=== PATIENT | male | born 1940 | race Caucasian/White ===

== ENCOUNTER 2024-08-28 09:54 | Day surgery (SDC) | payer MEDICARE, OTHER, SELFPAY ==
[2024-08-28] VITALS (13 sets, daily range): BP systolic 94–128; BP diastolic 60–81; BMI 24.0
[2024-08-28] MEDS: LOW STRENGTH ASPIRIN 324 MG PO (11:09)
--- NOTE | 2024-08-28 13:10 | ITS.CL.CATH ---
[facility] - Catheterization
Cardiac Catheterization
Procedure Report:
LEFT HEART CATHETERIZATION
Date of Procedure: 08/28/2024
Procedures performed:
1: Coronary angiography
2: Left ventriculography
Primary Care Physician: Dr. Link Loaiza
Primary Public Relations Director: Dr. Juan Carlos Lazcano
INDICATION: The patient is an 84-year-old man with past medical history significant for mitral valve repair in 2018, persistent atrial fibrillation, hypertension, and severe progressive symptomatic aortic stenosis. Echocardiography performed on
August 21 showed preserved LV systolic function, severe left atrial dilation, mild to moderate aortic regurgitation with severe aortic valvular stenosis with at worst a mean gradient of 68 mmHg a aortic valve area by continuity of 0.66 and a
dimensionless index of 0.18. He is experience increasing dyspnea on exertion. He is referred for coronary angiography in preparation for aortic valve intervention.
ACCESS: The patient was prepped and draped in usual sterile fashion. A 6 [place] sheath was placed in the right radial artery using the Seldinger over the wire technique.
HEMODYNAMIC FINDINGS (mmHg):
LV(s/d,EDP): 143/17, 23
Ao(s/d,m): 107/65, 83
Mean gradient on pullback 33 mmHg
ANGIOGRAPHIC FINDINGS:
Single-plane Left Ventriculography in [place] Projection: Not done
Coronary Angiography:
Dominance: Right
Left Main: Normal
Left Anterior Descending: The left anterior descending artery is a medium caliber vessel that gives rise to one major diagonal branch. The LAD itself has only mild luminal irregularities. The major diagonal branch has a smooth 50-60% ostial stenosis.
Ramus Intermedius: The ramus is a medium caliber vessel that bifurcates into 2 major branches. These vessels are widely patent.
Left Circumflex: The left circumflex is a relatively small caliber vessel that gives rise to 2 major obtuse marginal branches. These vessels have very mild luminal irregularities with no evidence of focal obstructive disease. The circumflex ostium
does have a smooth 50% stenosis.
Right Coronary: The right coronary artery is a relatively large caliber dominant vessel that gives rise to a medium caliber posterior descending artery and small posterior left ventricular branch system. There is mild 30-40% ostial disease. The
remainder of the vessels are widely patent.
Fluoroscopy Time (min): 2.8
Radiation Dose (mGy): 285
DAP (Gy.cm2): 24
Closure device: None. A TR band was applied for hemostasis at the right wrist.
Complications: None.
ASSESSMENT:
1: Nonobstructive coronary artery disease. Unchanged coronary anatomy as compared to prior angiography in 2017
2: Severe aortic valvular stenosis.
3: Elevated left ventricular filling pressures.
CONCLUSIONS and RECOMMENDATIONS:
1: Proceed with planned TAVR evaluation.
2: Continue medical therapy. Resume Eliquis in a.m. tomorrow.
Lynn Mcdonnell M.D.
Copy to: Dr. Link Loaiza
--- NOTE | 2024-08-28 14:46 | CONSULT.STRU ---
Addendum entered and electronically signed by ILIANA Alonzo 08/30/24 09:54:
Procedure Type:�Isolated AVR
PERIOPERATIVE OUTCOME ESTIMATE %
Operative Mortality 3.13%
Morbidity & Mortality 10.9%
Stroke 1.7%
Renal Failure 2.17%
Reoperation 5.27%
Prolonged Ventilation 5.29%
Deep Sternal Wound Infection 0.08%
Long Hospital Stay (>14 days) 6.45%
Short Hospital Stay (<6 days)* 23.7%
Original Note:
Consultation
-
Date/Time Consultation Requested: 08/28/2024
Date/Time Consultation Performed: 08/28/2024
Requesting Provider: Dr. Mcdonnell
Performing Provider: ILIANA Alonzo
Reason for Consultation: Aortic stenosis/TAVR evaluation
Patient History
Physicians
Family Physician: Dr. Loaiza
Outpatient Learning Support Teacher: Dr. Lazcano
Primary Learning Support Teacher: Dr. Lazcano
History of Present Illness
Patient is an 84yo male with known aortic stenosis. Over past 3-4 weeks he has noted increasing BLEVINS and has experienced pre-syncopal episode on several occasions with activity. His history is also notable for A-fib (on Eliquis), R-BBB and prior MV
repair in [address] Adan. Prior to a few weeks ago he was very active so this is a significant change for him. He denies chest pain, palpitations, orthopnea or PND. Denies peripheral edema. His echocardiogram on 08/21 was notable for EF: 50%,
Aortic valve PG/M/68, KEYANNA: 0.66, mild to moderate AI. Cardiac cath today with non-obstructive CAD, elevated filling pressures and a MG of 33mmHg on pull back.
Reviewed the pathophysiology of aortic stenosis with the patient,his and his son. Explained the treatment options of SAVR and TAVR. Explained the TAVR evaluation process including follow up BMP, CT TAVR scan, CT surgery consult and Heart Team
discussion. Provided with script for BMP next week, script and appointment for CT TAVR, Consult appointment with Dr. Miller and a copy of the TAVR education booklet with contact information. Allowed for and answered questions.
Past Medical History
Past Medical History: Atrial Fib (Eliquis), CAD (non-obstructive), BLEVINS, HTN, Hypercholesterolemia, JO (not formally diagnosed, no CPAP), Valvular Disease (h/o MR with MV repair 2017, , AI, Mild MR, Moderate TR) and Other (h/o pulmonary nodule,
osteoarthritis left hip)
Past Surgical History
Past Surgical History: Abdominal (hernia repairs (2000, 2016, 1997)), Orthopedic (Bilateral TKR (2003, 2013)) and Other (Cataract surgery, Lasik)
Dental History
Full Dentures
Family History
Mother: at Age
Father: at Age (CAD/VA age 84yo)
Family Medical History: Other (older brother with )
Social History
Alcohol: None
Drug: None
Tobacco: Non-Smoker
Personal:
Living: With Spouse
Employment: Retired ([employer])
Allergies
Allergy/AdvReac Type Severity Reaction Status Date / Time
amoxicillin Allergy Rash Verified 08/28/24 10:56
morphine Allergy hypotension, Verified 08/28/24 10:56
bradycardia
Home Medications
�Medication �Instructions �Recorded �Confirmed �Type
L.acidoph, paracasei,B. lactis 10 1 ea PO DAILY 10/04/17 08/28/24 History
billion cell capsule
coenzyme X53-flirrtx E 100 mg-5 1 ea PO DAILY 10/04/17 08/28/24 History
unit capsule (Co Q-10 (with Vit E))
multivitamin 1 ea PO DAILY 10/04/17 08/28/24 History
omega 6-haq-wdp-fish oil 300 1 ea PO DAILY 10/04/17 08/28/24 History
mg-1,000 mg capsule (Fish Oil)
apixaban 5 mg tablet (Eliquis) 5 mg PO BID 08/28/24 08/28/24 History
ascorbic acid (vitamin C) 1,000 mg 1,000 mg PO DAILY 08/28/24 08/28/24 History
tablet,extended release (Vitamin C
ER)
cholecalciferol (vitamin D3) 25 25 mcg PO DAILY 08/28/24 08/28/24 History
mcg (1,000 unit) tablet (Vitamin
D3)
hydrochlorothiazide 25 mg tablet 25 mg PO DAILY 08/28/24 08/28/24 History
losartan 25 mg tablet 50 mg PO DAILY 08/28/24 08/28/24 History
magnesium 250 mg tablet 250 mg PO DAILY 08/28/24 08/28/24 History
zinc 50 mg capsule 50 mg PO DAILY 08/28/24 08/28/24 History
Physical Exam
Vital Signs
Temp 97.9 F 08/28/24 10:39
Temp route: Oral 08/28/24 10:35
Pulse 87 08/28/24 14:22
Resp Rate 17 08/28/24 14:30
Blood pressure 101/65 08/28/24 14:22
Blood pressure extremity used: Left upper arm 08/28/24 14:30
Position: Sitting 08/28/24 14:30
MAP (cuff-Muriel Monitor) 77 08/28/24 14:22
SaO2 98 08/28/24 14:30
Oxygen Mode of Delivery Room air 08/28/24 14:30
Can the patient verbally communicate their pain? Yes 08/28/24 14:30
Actual Weight 71.6 kg 08/28/24 10:56
Body Mass Index (BMI) 24.0 08/28/24 10:56
Labs
08/22/2024:
H/H: 13.5/41.5
WBC: 3.9
Platelets: [id number]
BUN/Creat: 06/11.05
GFR: 70
Diagnostic Studies
Cardiac Catheterization 08/28/2024:
HEMODYNAMIC FINDINGS (mmHg):
LV(s/d,EDP): 143/17, 23
Ao(s/d,m): 107/65, 83
Mean gradient on pullback 33 mmHg
ANGIOGRAPHIC FINDINGS:
Single-plane Left Ventriculography in [place] Projection: Not done
Coronary Angiography:
Dominance: Right
Left Main: Normal
Left Anterior Descending: The left anterior descending artery is a medium caliber vessel that gives rise to one major diagonal branch. The LAD itself has only mild luminal irregularities. The major diagonal branch has a smooth 50-60% ostial stenosis.
Ramus Intermedius: The ramus is a medium caliber vessel that bifurcates into 2 major branches. These vessels are widely patent.
Left Circumflex: The left circumflex is a relatively small caliber vessel that gives rise to 2 major obtuse marginal branches. These vessels have very mild luminal irregularities with no evidence of focal obstructive disease. The circumflex ostium
does have a smooth 50% stenosis.
Right Coronary: The right coronary artery is a relatively large caliber dominant vessel that gives rise to a medium caliber posterior descending artery and small posterior left ventricular branch system. There is mild 30-40% ostial disease. The
remainder of the vessels are widely patent.
Fluoroscopy Time (min): 2.8
Radiation Dose (mGy): 285
DAP (Gy.cm2): 24
Closure device: None. A TR band was applied for hemostasis at the right wrist.
Complications: None.
ASSESSMENT:
1: Nonobstructive coronary artery disease. Unchanged coronary anatomy as compared to prior angiography in 2017
2: Severe aortic valvular stenosis.
3: Elevated left ventricular filling pressures.
CONCLUSIONS and RECOMMENDATIONS:
1: Proceed with planned TAVR evaluation.
2: Continue medical therapy. Resume Eliquis in a.m. tomorrow.
Echocardiogram 08/21/2024:
1. Moderate concentric LVH, low normal LVEF of 50%
2. Abnl LV diastolic dysfunction
3. Severely dilated left atrium
4. Mildly dilated right atrium
5. Tricuspid AV. Severe , mild to moderate AI. PG/M/68, KEYANNA: 0.66, Peak velocity: 5.66m/s
6. Mild MR. Mean gradient 5mmHg
7. Moderate TR
Exam
General: Well Developed, Well Nourished, No Apparent Distress and Comfortable
HEENT: Moist Mucous Membranes, PERRLA and EOMI
Neck: Trachea Midline
Respiratory: Clear; Negative Wheezes, Crackles or Rhonchi
Cardiac: S1/S2, Irregular Rhythm and Murmur (Grade III/)
GI: Soft, Non Tender, Non Distended and Normal Bowel Sounds; Negative Tender or Distended
Rectal: Deferred by Provider
Skin: Warm and Dry
Neuro: AO x 3 and No Motor Deficits
Extremities: Pulses (palpable DP and PT pulses); Negative Lower Level Edema
Psych: Calm
Assessment / Plan
-
Severe Aortic stenosis:
����������� Continue evaluation for TAVR as outpatient
����������� BMP 09/03/2024 at [facility]
����������� CT TAVR scan 09/06/2024 at 0945
����������� CT surgery consult with Dr. Miller 09/11/2024
����������� Heart team discussion at [facility]
Data Reviewed
-
EKG: Report Reviewed by me (R-BBB), Discussed with Patient and Discussed with Family
Implementation Manager: Report Reviewed by me, Discussed with Physician, Discussed with Patient and Discussed with Family
Echo: Report Reviewed by me, Discussed with Patient and Discussed with Family
Labs: Labs Reviewed by me and Discussed with Patient
Old Records: Reviewed (Consult from Dr. Lazcano)
Total Time Spent with Patient (in minutes): 30
== END 2024-08-28 15:52 | disposition home or self-care (01) ==
LOC: CATH 09:54
PROVIDERS: ATTENDING PHYSICIAN Internal Medicine Interventional Cardiology; PRIMARYCARE PHYSICIAN Family Medicine; REFERRING PHYSICIAN Internal Medicine Cardiovascular Disease
DX: I25.10 Atherosclerotic heart disease of native coronary artery without angina pectoris (principal); I35.2 Nonrheumatic aortic (valve) stenosis with insufficiency; I48.19 Other persistent atrial fibrillation; I10 Essential (primary) hypertension; R06.09 Other forms of dyspnea; E78.00 Pure hypercholesterolemia, unspecified; I08.3 Combined rheumatic disorders of mitral, aortic and tricuspid valves; Z82.49 Family history of ischemic heart disease and other diseases of the circulatory system; Z79.01 Long term (current) use of anticoagulants; Z79.899 Other long term (current) drug therapy
CPT/HCPCS: 93458; C1894; Q9967

== ENCOUNTER → 2024-09-06 09:39 | Outpatient (REF) | payer MEDICARE, OTHER, SELFPAY | LOC: RAD 09:39 | PROVIDERS: ATTENDING PHYSICIAN Nurse Practitioner Adult Health | DX: I35.0 Nonrheumatic aortic (valve) stenosis (principal) | CPT/HCPCS: 74174; 75572; Q9967 ==

== ENCOUNTER 2024-10-01 17:37 | Inpatient (IN) | payer MEDICARE, OTHER, SELFPAY ==
[2024-10-01 17:42] VITALS: BP 100/78
--- NOTE | 2024-10-01 18:46 | HPS.HSE ---
Family Physician
-
Family Physician: Link Loaiza
Chief Complaint
-
sob
History of Present Illness
84-year-old with past medical history for complete heart cardiac surgery for severe mitral valve regurgitation, sternotomy and mitral valve repair presented with short of breath for past few months. Short of breath worse with exertion. As per
cardiology and they meet criteria for severe aortic valve stenosis. Patient getting admitted to [facility] for possible TAVR on and cath tomorrow morning.
patient was admitted to [facility] due to CHF in setting of aortic stenosis. his symptoms did not improve with lasix. . he was placed on Bumex with some relief in his symptoms. He was noted to have LFT congestion and KHUSHBOO. he was also noted in
constipation. we was able to move his bowels today with laxative. patient was also noted to have rectal bleed likely from hemorrhoids related to constipation. he only noticed blood with wiping. patient was evaluated by GI at [facility] with recommendation
of continuing Miralax and Colace.
today patient denied fever, chills, chest pain. denied abdominal pain,n,v,d. denied dysuria or hematuria.
admitting for further management.
Medical History
Past Medical History
Past Medical History: Reports Other
Additional Past Medical History:
Mitral regurgitation
Mitral valve prolapse
Ureteral calculi
Hypertension
Right bundle branch block
Hyperlipidemia
Prostate cancer
A-fib
PVC
Past Surgical History: Reports Other
Additional Past Surgical History:
Hernia repair
Bilateral knee replacement
Prostatectomy
Mitral valve repair
Cataract removal
LASIK surgery
Social History
Tobacco: Non-smoker
Alcohol: None
Drug: None
Personal:
Living: With Family
Family History
Family History: Not pertinent
Allergies / Home Medications
Allergies reflects when Allergies were last updated in [facility].
Home Medications with original date entered in [facility]
Allergy/Medication List:
Allergies
Allergy/AdvReac Type Severity Reaction Status Date / Time
amoxicillin Allergy Rash Verified 09/24/24 11:19
morphine Allergy hypotension, Verified 09/24/24 11:19
bradycardia
Home Medications
L.acidoph,paracasei,B.animalis 10 billion cell capsule 1 ea PO DAILY 10/04/17
coenzyme S21-tzanhsf E 100 mg-5 unit capsule (Co Q-10 (with Vit E)) 1 ea PO DAILY 10/04/17
multivitamin 1 ea PO DAILY 10/04/17
omega 0-cnp-jsn-fish oil 300 mg-1,000 mg capsule (Fish Oil) 1 ea PO DAILY 10/04/17
apixaban 5 mg tablet (Eliquis) 5 mg PO BID 08/28/24
ascorbic acid (vitamin C) 1,000 mg tablet,extended release (Vitamin C ER) 1,000 mg PO DAILY 08/28/24
cholecalciferol (vitamin D3) 25 mcg (1,000 unit) tablet (Vitamin D3) 25 mcg PO DAILY 08/28/24
hydrochlorothiazide 25 mg tablet 25 mg PO DAILY 08/28/24
magnesium 250 mg tablet 250 mg PO DAILY 08/28/24
losartan 100 mg tablet 50 mg PO DAILY 09/24/24
zinc 1 tab PO DAILY 09/24/24
Review of Systems
-
Constitutional: Reports No Symptoms
EENT: Reports No Symptoms
Respiratory: Reports Trouble Breathing
Cardiac: Reports No Symptoms
Abdomen/GI: Reports Other (rectal bleed)
: Reports No Symptoms
Musculoskeletal: Reports No Symptoms
Skin: Reports No Symptoms
Neurological: Reports No Symptoms
Endocrine: Reports No Symptoms
Hematologic/Lymphatic: Reports No Symptoms
Psych: Reports No Symptoms
Physical Exam
Vital Signs
Vital Signs
Temp Resp Pulse Ox
97.3 F 20 99
10/01/24 17:56 10/01/24 17:56 10/01/24 17:56
Physical Exam
General: Well Developed, Well Nourished and No Apparent Distress
HEENT: NormoCephalic, Moist mucous membranes and Atraumatic
Respiratory: Clear
Cardiac: S1/S2 and Regular Rhythm; No Murmur or Rub
GI: Soft, Non Tender, Non Distended and Normal Bowel Sounds; No Organomegaly
Rectal: Deferred by Provider
Musculoskeletal: No Clubbing, No Cyanosis and No Edema
Skin: No Rash
Neuro: AO x 3 and Nonfocal/grossly intact
Psych: Calm
Data Reviewed
-
Lab Data: Labs Reviewed by me
Impression/Plan
-
# Congestive heart failure in setting of severe aortic stenosis
-IV Bumex continued
-strict I &O
-daily weight
-fluid restriction
-cardiology consulted
# Shortness of breath likely from severe aortic valve stenosis
-Keep patient n.p.o. after midnight
-Possible TVAR on 10/03
-Cardiology following
-cardiac cath tomorrow morning
#CT surgeon consulted
# Hepatic congestion likely from CHF
-continue to trend lft's
# Acute kidney injury on CKd stage 3b likely from diuretics
-creatine on arrival 1.4, today 1.65
-ctm BMP on diuretics
# Severe constipation
# Rectal bleeding likely from hemorrhoids
-Hemoglobin stable 14.4
-continue to trend h&h
-miralax and Colace continued
# History of severe mitral valve regurgitation
-Status post open heart surgery in 2017
# History of sternotomy mitral valve repair
#non obstructive CAD
-for cath in am
#essential HTN
-hold losartan and HCTZ due to KHUSHBOO
#atrial fib unclear paroxysmal or permanent/right bundle branch block
-hold Eliquis
-obtain EKG
#prostate ca
-sp prostatectomy
#DVT prophylaxis
-scd
#CODE status
-full code
[2024-10-01 18:55] VITALS: BP 101/80
--- NOTE | 2024-10-01 19:22 | PTCARENOTE ---
Received patient from [facility] at 1740. Oriented to the room and plan of care. Dr. Preciado notified that patient had arrived. Bed alarm placed on the bed for safety, call calvillo in reach.
--- NOTE | 2024-10-01 20:13 | W.PN.UPDATE ---
Addendum entered and electronically signed by Edward Weems MD 10/01/24 23:14:
Lactate of 3. Blood pressure 90s systolic. Will CBC and CMP and CXR now. Patient did not appear septic on my initial assessment and is afebrile.
Original Note:
Update Note
Progress Note Update
This is an addendum to the H&P written by Ivy Rubin on 10/01/2024. Patient seen and examined dependently with MEDICAL CENTER MANAGER.
84-year-old male past medical history of mitral prolapse, severe mitral valve regurgitation status post sternotomy mitral repair with ring annuloplasty, known severe aortic stenosis, nonobstructive CAD, atrial fibrillation on Eliquis, right bundle
branch block, hypertension, hyperlipidemia, prostate cancer, presenting as a transfer from [facility]. He presented originally with weakness/dyspnea with exertion. He was admitted for CHF exacerbation. He was treated with IV diuretics
initially with 80 IV Lasix twice daily without adequate response which was increased to Bumex reportedly 3 times daily. TAVR was planned for 10/03 as outpatient prior to presentation so patient was transferred to outside hospital.
Patient's baseline creatinine is 1.1 and was 1.4 initially on arrival to [place], now 1.65 with diuresis.
While hospitalized patient also developed constipation and rectal bleeding and was seen by GI who recommended MiraLAX twice daily. Eliquis is currently on hold.
At the current time patient denies any significant cardiopulmonary symptoms. He continues to have rectal bleeding with wiping. His hemoglobin has recently been 14 today.
Check labs. Check lactate as this was reportedly elevated.
Will maintain Bumex to 4 mg twice daily because although cardiac notes say 4 mg 3 times daily, discharge list states 4 mg twice daily. Increase diuresis as needed.
N.p.o. past midnight for RHC tomorrow with plan for TAVR on 10/03. Cardiology and cardiothoracic surgery consulted.
--- NOTE | 2024-10-01 21:00 | PTCARENOTE ---
Pt received at change of shift. Afib on tele with HR 120s-130s. Pt AAOx3 but forgetful at times. Bed alarm in place for pt safety. Pt transferred from [facility] during day shift. Dr. Weems to bedside to admit pt and place orders. Labs
collected and sent per orders. Pt OOB with x 1 assist. Call calvillo within reach.
[2024-10-01] MEDS: BUMEX 4 MG IV (21:22)
[2024-10-01 21:24] VITALS: BP 99/85
[2024-10-01 21:25] VITALS: BP 120/82
[2024-10-01 21:27] LABS: Lactic Acid 3.3 mmol/L (0.7-2.0)
[2024-10-01 22:20] VITALS: BP 91/76
[2024-10-01 23:52] LABS: % Basophils 0.3 % (0-2); % Eosinophils 1.1 % (0-6); % Immature Granulocytes 2.4 % (0-0.5); % Lymphocytes 7.9 % (20.5-51.1); % Monocytes 15.3 % (1.7-9.3); Absolute Eosinophils 0.1 10^3/uL (0-0.7); Absolute Immature Granulocytes 0.2 10^3/uL (0-0.05); Absolute Lymphocytes 0.5 10^3/uL (1.2-3.4); Absolute Neutrophils 4.6 10^3/uL (1.4-6.5); Hematocrit 40.9 % (39.0-52.0); Hemoglobin 14.3 g/dL (13.0-18.0); Mean Corpuscular Hgb 31.6 pg (27.0-31.0); Mean Corpuscular Volume 90.5 fL (80.0-94.0); Nucleated Red Blood Cells % 0 % (-); Platelet Count 163 10^3/uL (130-400); Red Blood Cell Count 4.52 10^6/uL (4.70-6.10); Red Cell Dist. Width 13.8 % (11.5-14.5); White Blood Cell Count 6.3 10^3/uL (4.8-10.8)
[2024-10-02] VITALS (59 sets, daily range): BP systolic 53–156; BP diastolic 41–101; PULSE 82; BMI 22.3
[2024-10-02 00:56] LABS: ALT (SGPT) 239 U/L (0-50); AST (SGOT) 197 U/L (17-59); Albumin 4.2 g/dl (3.5-5.0); Alkaline Phosphatase 65 U/L (38-126); Blood Urea Nitrogen 79 mg/dl (9-20); Calcium 8.8 mg/dl (8.4-10.2); Carbon Dioxide 27 mmol/L (22-30); Chloride 91 mmol/L (98-107); Estimated Creatinine Clearance 34 ml/min; Glucose 157 mg/dl (70-99); Potassium 3.4 mmol/L (3.5-5.1); Sodium 131 mmol/L (135-145); Total Bilirubin 3.2 mg/dl (0.2-1.3); Total Protein 6.6 g/dl (6.3-8.2); eGFR 42.22
[2024-10-02] MEDS: STERILE WATER FOR INJECTION 10 ML IV ×2 (01:01→12:09)
[2024-10-02] MEDS: ZITHROMAX INFUSION 250 IV (01:01)
[2024-10-02] MEDS: ROCEPHIN 1000 MG IV (01:01)
[2024-10-02 01:56] LABS: COVID-19 Antigen Negative (Negative)
[2024-10-02] MEDS: ATIVAN 1 MG IV (02:06)
[2024-10-02] MEDS: NSS (PRESERVATIVE FREE) 0.5 ML IV (02:06)
--- NOTE | 2024-10-02 02:10 | PTCARENOTE ---
Pt calling out, pulling off covers stating he cannot lay in bed anymore and is unable to sleep. PRN Ativan offered for anxiety and pt accepts. IV Ativan administered per orders, see MAR. Pt denies any further needs at this time. Call calvillo within
reach.
[2024-10-02 02:57] LABS: Hemoglobin 15.1 g/dL (13.0-18.0); Mean Corp Hgb Conc. 34.3 g/dL (33.0-37.0); Mean Corpuscular Hgb 31.3 pg (27.0-31.0); Mean Corpuscular Volume 91.3 fL (80.0-94.0); Mean Platelet Volume 10.9 fL (7.4-10.4); Platelet Count 155 10^3/uL (130-400); Red Blood Cell Count 4.82 10^6/uL (4.70-6.10); White Blood Cell Count 7.1 10^3/uL (4.8-10.8)
--- NOTE | 2024-10-02 03:00 | W.PN.ANESINT ---
Anesthesia Intubation Note
- Intubation Note
Intubation Note:
Diagnosis: CODE 9-- Cardiogenic SHOCK -- Agonal breathing
Blade: Glidescope 4
Tube Size: 8.0
Depth: 24cm@lip
Side Taped: right
Drugs Used: succs-50 mg
Grade View: 1
EtCO2 Present: yes
Atraumatic: yes
Attempts: 1
Insertion Start and Stop Time: 02:33 -02:35
SaO2 Pre: 34
SaO2 Post: 83 Continuous CPR performed , SaO2 not always registering
Glidescope Used: yes
Other Airway Adjustments: none
Pre-Oxygenated: yes
Portable Chest X-Ray: yes
RSI: no
Suctioned: yes
Bilateral Breath Sounds Confirmed: yes
Vent Settings:
Settings per ___Attending Physician
[2024-10-02 03:02] LABS: B.E. 1.7 mmol/L; HCO3 26.6 mmol/L (21-28); O2 Saturation % 93.6 % (94-98); O2 Therapy 100% BAGGING; PCO2 42 mmHg (35-48); PO2 69 mmHg (83-108); pH 7.41 (7.35-7.45)
[2024-10-02 03:06] LABS: APTT 31.3 Sec (23.4-35.0); INR 2.31; PT 25.5 Sec (11.4-14.6)
[2024-10-02 03:07] LABS: Ionized Calcium 0.96 mMOL/L (1.15-1.33)
[2024-10-02 03:11] LABS: ALT (SGPT) 253 U/L (0-50); AST (SGOT) 245 U/L (17-59); Albumin 4.5 g/dl (3.5-5.0); Alkaline Phosphatase 73 U/L (38-126); Blood Urea Nitrogen 79 mg/dl (9-20); Calcium 8.6 mg/dl (8.4-10.2); Carbon Dioxide 26 mmol/L (22-30); Chloride 89 mmol/L (98-107); Estimated Creatinine Clearance 32 ml/min; Glucose 170 mg/dl (70-99); Potassium 3.7 mmol/L (3.5-5.1); Sodium 135 mmol/L (135-145); Total Bilirubin 3.4 mg/dl (0.2-1.3); eGFR 39.26
[2024-10-02 03:13] LABS: Lactic Acid 5.4 mmol/L (0.7-2.0)
--- NOTE | 2024-10-02 03:18 | CON.CAR ---
Addendum entered and electronically signed by Ranjit Sutherland DO 10/02/24 16:51:
Physical examination:
General: Unresponsive on vent
Neck: Negative JVD
Heart: Irregularli irregular, Negative S3 positive S1/S2, Negative S4, No murmur
Lungs: Rhonchi b/l. Negative wheezes/rales
Abd: Positive BS, NT/ND, neg rebound/rigidity/guarding
Ext: Negative cyanosis/clubbing/edema
Neuro: nonfocal
Original Note:
Consultation
Consultation Request
Date/Time Consultation Requested: October 02 2024
Date/Time Consultation Performed: October 02 2024
Requesting Provider: Hospitalist
Performing Provider: Dr Sutherland
Reason for Consultation: s/p PEA cardiac arrest
Medical History
-
Chief Complaint: shortness of breath
History of Present Illness:
Called regarding pt coded. 84-year-old with past medical history for severe MR s/p MV repair, RBBB, AFib with known severe who has been getting outpt work up for TAVR and was [facility] He was transferred to this evening
for TAVR this week. He had work up for TAVR as outpt and had prior cath without obstructive disease.
During admit at [facility] he was treated for HF in setting of with Bumex. He had LFT congestion and KHUSHBOO. He also had constipation but able to move his bowels with laxative and had some rectal bleeding felt to be from hemorrhoids.
He was noted tonight to have bradycardia mediated arrest and went into PEA and responded to resuscitative efforts. A few minutes later, he had recurrent PEA and brief VF and received defib. He responded with ROSC and was started on IV Levophed and
IV Dobutamine and IV amiodarone after 300 mg IV Amiodarone. Now intubated and transferrerd to ICU.
Past Medical History
Severe for TAVR
Mitral regurgitation s/p MV repair
Ureteral calculi
Hypertension
Right bundle branch block
Hyperlipidemia
Prostate cancer
A-fib
PVC
Past Surgical History:
Hernia repair
Bilateral knee replacement
Prostatectomy
Mitral valve repair
Cataract removal
LASIK surgery
Social History
Tobacco: Non-Smoker
Alcohol: None
Personal:
Living: With Family
Allergies / Home Medications
Allergy/AdvReac Type Severity Reaction Status Date / Time
amoxicillin Allergy Rash Verified 09/24/24 11:19
morphine Allergy hypotension, Verified 09/24/24 11:19
bradycardia
�Medication �Instructions �Recorded �Confirmed �Type
L.acidoph,paracasei,B.animalis 10 1 ea PO DAILY 10/04/17 09/24/24 History
billion cell capsule
coenzyme V19-pegquew E 100 mg-5 1 ea PO DAILY 10/04/17 09/24/24 History
unit capsule (Co Q-10 (with Vit E))
multivitamin 1 ea PO DAILY 10/04/17 09/24/24 History
omega 7-tle-wun-fish oil 300 1 ea PO DAILY 10/04/17 09/24/24 History
mg-1,000 mg capsule (Fish Oil)
apixaban 5 mg tablet (Eliquis) 5 mg PO BID 08/28/24 09/24/24 History
ascorbic acid (vitamin C) 1,000 mg 1,000 mg PO DAILY 08/28/24 09/24/24 History
tablet,extended release (Vitamin C
ER)
cholecalciferol (vitamin D3) 25 25 mcg PO DAILY 08/28/24 09/24/24 History
mcg (1,000 unit) tablet (Vitamin
D3)
hydrochlorothiazide 25 mg tablet 25 mg PO DAILY 08/28/24 09/24/24 History
magnesium 250 mg tablet 250 mg PO DAILY 08/28/24 09/24/24 History
losartan 100 mg tablet 50 mg PO DAILY 09/24/24 09/24/24 History
zinc 1 tab PO DAILY 09/24/24 09/24/24 History
Review of Systems
-
Unable to obtain full review of systems at this time due to: Patient Intubation
Physical Exam
Vital Signs
Temp Pulse Resp BP Pulse Ox
97.5 F 110 20 91/76 100
10/01/24 22:07 10/01/24 22:20 10/01/24 22:07 10/01/24 22:20 10/01/24 22:07
Physical examination:
General: No acute distress, AAOX3
Neck: Negative JVD
Heart: Regular, Negative S3 positive S1/S2, Negative S4, No murmur
Lungs: CTA b/l, negative wheezes/rales/rhonchi
Abd: Positive BS, NT/ND, neg rebound/rigidity/guarding
Ext: Negative cyanosis/clubbing/edema
Neuro: nonfocal
Impression / Plan
-
.
Primary Bushel Worker: Dr. Lazcano of [facility]
Impression:
Presented to [facility] with SOB
s/p PEA arrest with brief Vfib
Acute on chronic HFpEF
Severe
Low normal EF, 50% by echo 08/21/2024
Transaminitis
KHUSHBOO
Hemorrhoidal rectal bleeding
Severe MR status post mitral valve repair with ring annuloplasty and new cords to posterior leaflet 10/2017
Hypertension
Hyperlipidemia
Chronic right bundle branch block
Persistent atrial fibrillation
History of prostate cancer status post prostatectomy in 2006
Right lower lobe pulmonary nodule
History of hernia repairs
OA s/p B/L TKR
ECHO 08/21/24: EF 50%, moderate concentric LVH, severely dilated left atrium, mildly dilated right atrium, severe , mild to moderate AR, peak/mean gradients 122/68 mmHg, KEYANNA 0.66 cm�, mild MR status post number 32 mm annuloplasty ring with mean
gradient of 5 mmHg, moderate TR, was in afib/flutter
Cath 08/28/2024: Nonobstructive coronary artery disease�diagonal stenosis 50 to 60%, circumflex stenosis 50%, 30 to 40% ostial RCA disease, remainder of vessels widely patent
Plan:
Pt in critical condition. IV Levophed and IV dobutamine currently on for pressor support. Wean as tolerated.
Monitor labs and replete lytes as necessary. Keep K>4 and Mg>2.
Check echo
Cont IV Bumex gtt as per forestry hunter.
IV Amiodarone for VFib
Vent management as per forestry hunter
Eventual reconsideration for TAVR
Discussed with primary service and covering BIG DATA LEAD
Son has been updated.
CCT: 60 min
Data Reviewed
-
Labs: Labs Reviewed by me
Old Records: Reviewed
[2024-10-02] MEDS: DOBUTREX 500 MG 250 IV ×2 (03:38→12:13)
[2024-10-02] MEDS: SUBLIMAZE 50 MCG IV (03:53)
[2024-10-02] MEDS: BUMEX 50 IV ×2 (03:54→09:28)
[2024-10-02] MEDS: SUBLIMAZE 100 IV (03:54)
--- NOTE | 2024-10-02 04:00 | PTCARENOTE ---
Pts HR on tele monitor noted to drop from 120s to 50s ~0220. RN to bedside and on assessment pt unresponsive to sternal rub and pulseless. Compressions started and code 9 called. Code team to bedside, see code documentation. Pt transferred to
ICU, report given to WOOL SACKER. All pts personal belongings and paperwork from [facility] sent to ICU with pt.
[2024-10-02] MEDS: PITRESSIN 100 IV ×2 (04:05→09:47)
[2024-10-02] MEDS: CALCIUM GLUCONATE 130 MG IV (04:06)
[2024-10-02] MEDS: CORDARONE 518 MG IV (04:12)
[2024-10-02 04:19] LABS: B.E. -1.6 mmol/L; HCO3 21.7 mmol/L (21-28); O2 Saturation % 90.3 % (94-98); PCO2 32 mmHg (35-48); PO2 60 mmHg (83-108); pH 7.44 (7.35-7.45)
[2024-10-02 04:20] LABS: O2 Therapy VENT
--- NOTE | 2024-10-02 05:31 | PTCARENOTE ---
Code 9 called overhead in IVU, please see code sheet in chart. Taken to ICU for further monitoring. Please see assessment for details.
--- NOTE | 2024-10-02 05:42 | W.PN.UPDATE ---
Update Note
Progress Note Update
10/02/24
Responded to code 9 at 0226, see code 9 sheet for full details of resuscitation. Dr. Lerma, hospitalist, at code and all recommendations received. Rose Littlejohn [facility] ELIEZER and hospitalist Franki present during code as well. Patient was at first
noted to have bradycardia arrhythmia which went into PEA. CPR was immediately started, epi IV given, and bicarb IV. Patient was intubated by PATTERNATOR, copious frothy bloody secretions noted. ROSC was achieved after few minutes of resuscitation. A
few minutes later patient lost pulse with PEA and ventricular fibrillation which he did receive shock x1. Epi was given, see second code 9 sheet for resuscitation details. IV amiodarone 300mg bolus given and gtt ordered but was held due to
hypotension initially. Vasopressors Levophed and Dobutamine were initiated titrated quickly. Dr. Sutherland, manufacturing supervisor called and updated, agreed with current medications and amiodarone for ventricular arrhythmias. Dr. Sutherland did come to bedside to
evaluate the patient as well. Dr. Tomas, utility locate technician, updated and discussed case, recommended to avoid fever, prn tylenol, bumex gtt as tolerated, agreed with current vasopressors and interventions.
Patient was transported to ICU. Ventilator settings adjusted and peep of 8. Likely acute congestive heart failure causing hypoxemia probably contributed to code. Azithromycin was also stopped due to ventricular arrhythmia/code. Chest xray
obtained for ETT placement. Sedation prn fentanyl and fentanyl gtt, prn ativan IV.
--- NOTE | 2024-10-02 06:16 | PTCARENOTE ---
PERRLA 3, movement noted in extremities to deep stimuli. Reflexes intact, overbreathing ventilator. Restraints applied for safety reasons. Afebrile, goal to keep patient normothermic. Afib on -236. Peripheral IVs.
Dobutamine/Levo/Vaso/Amio/Bumex/Fent gtts titrated to clinical endpoints. PICC order in. Awaiting VAT. #8 ett, vent settings as ordered. NGT placed, confirmed by xray. Mumtaz rinaldiianing clear yellow urine. Will monitor.
--- NOTE | 2024-10-02 07:22 | VATNOTE ---
PICC order noted. BREAD SUPERVISOR states central line was placed at bedside. Will hold PICC placement at this time.
[2024-10-02 07:50] LABS: B.E. 2.9 mmol/L; HCO3 26.1 mmol/L (21-28); O2 Saturation % 99.3 % (94-98); PCO2 35 mmHg (35-48); PO2 142 mmHg (83-108); pH 7.48 (7.35-7.45)
--- NOTE | 2024-10-02 07:53 | PTCARENOTE ---
MD Moser at bedside to place art line and central line, both right fem. Report given to oncoming shift.
[2024-10-02] MEDS: LEVOPHED 258 MG IV ×2 (08:27→12:29)
--- NOTE | 2024-10-02 08:29 | CON.INTV ---
Consultation
Consultation Request
Date/Time Consultation Requested: 10/02/2024335
Date/Time Consultation Performed: 10/02/2024827
Requesting Provider: ILIANA Acuña
Performing Provider: Hunter Tomas MD
Reason for Consultation: Cardiac Arrest
Medical History
-
Chief Complaint: Shortness of breath
History of Present Illness:
84-year-old male non-smoker with a past medical history of A-fib on Eliquis, severe aortic valve stenosis, mitral valve regurgitation, RBBB, hypertension, hyperlipidemia, history of PVCs and history of prostate cancer s/p prostatectomy who presented
from [facility] for evaluation for TAVR. Patient was initially mid to [facility] due to worsening shortness of breath and fatigue and found to be in CHF in the setting of severe aortic stenosis. Symptoms did not improve with Lasix. Found to have
transaminitis and KHUSHBOO as well as constipation. Noted to have rectal bleeding likely from hemorrhoids from constipation. Due to worsening shortness of breath he was transferred here to [facility] for evaluation of TAVR. Unfortunately on the early
morning hours of 10/02/2024 he cardiac arrested after becoming bradycardic and then developed into PEA. CPR started immediately and he was given epinephrine + bicarb and intubated by anesthesia. ROSC achieved reportedly after few minutes. Few
minutes later he lost pulse again which was PEA mixed with a V-fib and he was shocked x 1. Also given epi. Started on amiodarone with bolus given however drip held due to hypotension. Started on pressors with Levophed and dobutamine. He was
transferred to the ICU on mechanical ventilation and consumer sales representative services consulted for additional management/recommendations.
Patient was seen and evaluated this morning. He remains critically ill on multiple pressors including dobutamine at 7.5mcg/kg/min and Levophed at 30mcg/min. Also on vasopressin at 0.04 units/min. Being diuresed with Bumex at 1mg/hr and also on
amiodarone at 1mg/min. Being sedated with fentanyl at 50mcg/hr. Intubated on AC/CMV at 16/450/8/100%, with PIP: 19 cmH2O, VTe 492 mL and breathing at 19 breaths/minute. Currently, heart rate 89, BP via A-line: 87/50, and saturating 92%.
End-tidal CO2: 29. Cardiology (Dr. Love) at bedside performing echo and LVEF reportedly low at 15-20%. Family at bedside as well, including Hilda and [id number], Jayashree. All questions were answered. Per bedside nurse he is following
commands for the nurse as well as to the family.
PMHx: Nonrheumatic aortic valve stenosis, mitral valve regurgitation, mitral valve prolapse, history of ureteral calculi, hypertension, RBBB, hyperlipidemia, history of prostate cancer, A-fib on Eliquis, history of PVCs
PSHx: Hernia repair x 3, bilateral knee replacements, prostatectomy (2006), mitral valve repair (October 2017), cataract removal, LASIK eye surgery
Past Medical History
Past Medical History: Other (Above as per HPI)
Past Surgical History: Other (Above as per HPI)
Social History
Tobacco: Non-smoker
Alcohol: None
Drug: None
Personal:
Living: With Family (Spouse: Hilda)
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
Family History
Family History: CAD (Father ( of massive NH)) and Diabetes (Mother)
Allergies / Home Medications
Allergies
Allergy/AdvReac Type Severity Reaction Status Date / Time
amoxicillin Allergy Rash Verified 09/24/24 11:19
morphine Allergy hypotension, Verified 09/24/24 11:19
bradycardia
Home Medications
�Medication �Instructions �Recorded �Confirmed �Last Taken �Type
L.acidoph,paracasei,B.animalis 10 1 ea PO DAILY 10/04/17 09/24/24 08/27/24 08:00 History
billion cell capsule
coenzyme H60-qaepyis E 100 mg-5 1 ea PO DAILY 10/04/17 09/24/24 08/27/24 08:00 History
unit capsule (Co Q-10 (with Vit E))
multivitamin 1 ea PO DAILY 10/04/17 09/24/24 08/27/24 08:00 History
omega 3-nmd-qtw-fish oil 300 1 ea PO DAILY 10/04/17 09/24/24 08/27/24 08:00 History
mg-1,000 mg capsule (Fish Oil)
apixaban 5 mg tablet (Eliquis) 5 mg PO BID 08/28/24 09/24/24 08/26/24 08:00 History
ascorbic acid (vitamin C) 1,000 mg 1,000 mg PO DAILY 08/28/24 09/24/24 08/27/24 08:00 History
tablet,extended release (Vitamin C
ER)
cholecalciferol (vitamin D3) 25 25 mcg PO DAILY 08/28/24 09/24/24 08/27/24 08:00 History
mcg (1,000 unit) tablet (Vitamin
D3)
hydrochlorothiazide 25 mg tablet 25 mg PO DAILY 08/28/24 09/24/24 08/27/24 08:00 History
magnesium 250 mg tablet 250 mg PO DAILY 08/28/24 09/24/24 08/27/24 08:00 History
losartan 100 mg tablet 50 mg PO DAILY 09/24/24 09/24/24 Unknown History
zinc 1 tab PO DAILY 09/24/24 09/24/24 Unknown History
Review of Systems
-
Unable to Obtain full review of systems at this time due to: Patient Intubation
Vitals / Labs / Diagnostic Testing
Vital Signs
Temp Pulse Resp BP Pulse Ox
96.7 F L 109 16 93/65 93
10/02/24 08:41 10/02/24 07:40 10/02/24 07:40 10/02/24 07:40 10/02/24 08:30
Lab Data
10/02/24 08:24
Laboratory Results
10/02/24 10/02/24 10/02/24
02:45 04:08 07:41
PT 25.5 H
INR 2.31
APTT 31.3
pH 7.41 7.44 7.48 H
pCO2 42 32 L 35
pO2 69 L 60 L 142 H
HCO3 26.6 21.7 26.1
O2 Delivery Level 100% bagging Vent Not Reportable
10/02/24 10/02/24 10/02/24
08:24 08:24 08:24
PT 30.0 H 29.5 H
INR 2.81 2.76
APTT 35.4 H
pH
pCO2
pO2
HCO3
O2 Delivery Level
Microbiology
10/02/24 01:14 Nasal Swab Influenza Types A & B (YURI) - Final
Negative for Influenza A & B, NAAT
Negative results must be combined with clinical observations
and patient history.
Nucleic Acid Amplification test (NAAT)performed on the
[employer] platform.
Diagnostic Testing:
Physical Exam
-
HEENT: Normocephalic, Anicteric and Other (ETT in place)
Cardiovascular: Irregular Rhythm (Irregularly irregular)
Respiratory: Wheeze (negative), Rales (Bilateral), Rhonchi (Left hemithorax) and Other (Mechanical breath sounds heard bilaterally)
GI: Soft, Non Distended, Non Tender and Normal Bowel Sounds
Neurology: Tremors (negative) and Other (Sedated; not following commands)
Skin: Warm and Dry
General: Respiratory Distress (negative), Comfortable, Fever (negative) and Chills (negative)
Assessment
-
Assessment: 84-year-old male non-smoker with a past medical history of A-fib on Eliquis, severe aortic valve stenosis, mitral valve regurgitation, RBBB, hypertension, hyperlipidemia, history of PVCs and history of prostate cancer s/p prostatectomy
who presented from [facility] for evaluation for TAVR. Patient was initially mid to [facility] due to worsening shortness of breath and fatigue and found to be in CHF in the setting of severe aortic stenosis. Symptoms did not improve with Lasix.
Found to have transaminitis and KHUSHBOO as well as constipation. Noted to have rectal bleeding likely from hemorrhoids from constipation. Due to worsening shortness of breath he was transferred here to [facility] for evaluation of TAVR. Unfortunately
on the electrical helper hours of 10/02/2024 he cardiac arrested after becoming bradycardic and then developed into PEA. CPR started immediately and he was given epinephrine + bicarb and intubated by anesthesia. ROSC achieved reportedly after few
minutes. Few minutes later he lost pulse again which was PEA mixed with a V-fib and he was shocked x 1. Also given epi. Started on amiodarone with bolus given however drip held due to hypotension. Started on pressors with Levophed and
dobutamine. He was transferred to the ICU on mechanical ventilation and consumer sales representative services consulted for additional management/recommendations.
Chronic conditions FACER OPERATOR: Nonrheumatic aortic valve stenosis, mitral valve regurgitation, mitral valve prolapse, history of ureteral calculi, hypertension, RBBB, hyperlipidemia, history of prostate cancer, A-fib on Eliquis, history of PVCs
Impression:
#In-hospital cardiac arrest (PEA) likely due to hypoxia from acute pulmonary edema in setting of severe aortic stenosis
#Aspiration pneumonia (right side predominant) likely due to cardiac arrest
#Acute HFrEF exacerbation with stage II diastolic dysfunction (TTE done today shows LVEF: 15-20% with severe global hypokinesis)
#Shock: Cardiogenic and also sepsis (in the setting of pneumonia)
#A-fib on Eliquis
#Critical aortic stenosis with KEYANNA: 0.43 cm� with peak/mean gradient of 86/50 mmHg.
#Valvular heart disease with moderate TR, moderate�severe AI with mild MR
#Leukocytosis
#Hypokalemia
#KHUSHBOO
#Hyperglycemia
#Lactic acidosis
#Transaminitis likely due to hepatic congestion
#Elevated troponin likely due to cardiac arrest (of note, recent left heart cath on 08/28/2024 showed nonobstructive CAD
#History of prostate cancer s/p prostatectomy (2006)
#History of PVCs
#History of RBBB
Plan:
- Patient was transferred from [facility] for evaluation for TAVR and unfortunately suffered a cardiac arrest on morning of 10/02/2024
- Given his hemodynamic stability, he is not clinically safe to be chilled and instead we should avoid fever; he also is awakening and following simple commands per BELLY ROLLER
- Maintain core sensing temperature probe for 72 hours to assure that fever is avoided
- Cardiology consulted and recommendations appreciated
- Continue ASA; unable to give statin given transaminitis
- Continue with mechanical ventilation and titrate FiO2 + PEEP to maintain SpO2 >94%
- Maintain plateau pressure <30
- prn nebulized bronchodilators - not currently bronchospastic
- Continue with diuresis with Bumex drip
- Trend sCr, strict I/O and UOP
- Echo results reviewed
- Continue vasopressors --> in setting of severe , would add neosynephrine
- Continue dobutamine and monitor for arrhythmias
- Continue with Levophed and vasopressin
- Maintain MAP>65
- Hold home antihypertensives for now
- Renally dose all meds/Abx
- Trend sCr and UOP with strict I/O
- Continue with broad-spectrum antibiotics and change ceftriaxone to cefepime; continue doxycycline
- Check sputum culture from ETT
- Check blood cultures
- Replete electrolytes with K>4, Mg>2
- Maintain euglycemia with goal BG 140-180; start ISS q6hr
- Trend H/H and transfuse if needed to keep Hb>7g/dL; keep plt>20k, unless there is concern for bleeding then keep plt>50k
- DVT ppx: Start HSQ for now, and if no signs of bleeding by tomorrow then would start Eliquis at that time
- Guarded prognosis --> family discussion held with me and + daughter in law. They are aware of the severity of illness of Artem; goals of care discussion held and they would like to make him DNR. Cardiothoracic surgeon, Dr. Miller, as well as
cardiology spoke with the patient's family as well and pain to the grim picture given his degree of critical aortic stenosis now with acute heart failure, recent cardiac arrest and now with pneumonia with sepsis with worsening shock. Comfort care
discussed but after I held a discussion with them they would like to continue with full medical management for now and if he were to worsen then they would like to transition to comfort care with withdrawal of treatment at that time. Patient's
goals of care will be an ongoing discussion and they may withdraw care later today.
Critical care statement: A total of 47 minutes of critical care time was provided for this patient today. This includes management of unstable vital signs, evaluation of the patient at bedside, reviewing the patient's pertinent medical records
including radiographs, microbiology, laboratory evaluations, and discussion with primary team, consultants, pharmacy, nutrition, physical therapy, case management, charge nurse, critical care nursing, and respiratory therapy.
Data:
CXR 10/02/2024:
There is moderately extensive nodular parenchymal airspace disease throughout the right lung, new when compared with the prior study consistent with pneumonia.
There is small stable right pleural effusion
The tip of the endotracheal tube is in satisfactory position.
[2024-10-02 08:40] LABS: Hematocrit 41.3 % (39.0-52.0); Hemoglobin 14.2 g/dL (13.0-18.0); Mean Corp Hgb Conc. 34.4 g/dL (33.0-37.0); Mean Corpuscular Hgb 31.3 pg (27.0-31.0); Mean Corpuscular Volume 91.2 fL (80.0-94.0); Mean Platelet Volume 10.6 fL (7.4-10.4); Platelet Count 174 10^3/uL (130-400); Red Blood Cell Count 4.53 10^6/uL (4.70-6.10); White Blood Cell Count 15.2 10^3/uL (4.8-10.8)
[2024-10-02 08:48] LABS: APTT 35.4 Sec (23.4-35.0); INR 2.76; INR 2.81; PT 29.5 Sec (11.4-14.6)
--- NOTE | 2024-10-02 08:49 | PTCARENOTE ---
Addendum entered by Fifi Ba RN 10/02/24 09:02:
pt afib with bbb
Original Note:
pt received from previous rn- ett to vent- pt post cardiac arrest. Dr. Moser and Dr. Preciado at bedside placed right femoral cvc- all three lumens flush with good blood return. right fem shalonda placed- zeroed and functioning. levo, dobutamine, vaso,
fentanyl, amio and bumex gtts continue as per order- see flowsheets. pupils equal and reactive. does not follow commands, over breathes vent, small reflex movements. brown draining yellow urine. ngt to low int. suction, minimal output. pt in afib
rate 90s-130s- cardiology at bedside. abg and all labs sent per order. echo at bedside. family updated. all safety precautions in place.
[2024-10-02 09:05] LABS: ALT (SGPT) 213 U/L (0-50); AST (SGOT) 279 U/L (17-59); Albumin 3.5 g/dl (3.5-5.0); Alkaline Phosphatase 61 U/L (38-126); Blood Urea Nitrogen 80 mg/dl (9-20); Calcium 8.7 mg/dl (8.4-10.2); Carbon Dioxide 25 mmol/L (22-30); Chloride 89 mmol/L (98-107); Estimated Creatinine Clearance 30 ml/min; Glucose 278 mg/dl (70-99); Sodium 132 mmol/L (135-145); Total Bilirubin 3.9 mg/dl (0.2-1.3); Total Protein 5.8 g/dl (6.3-8.2); eGFR 36.66
--- NOTE | 2024-10-02 09:12 | W.PN.HOSP.TC ---
Today's Communication/Plan
-
Pressors. Goals of care discussions ongoing.
Assessment / Plan
Assessment / Plan
Physical exam:
General: Acutely and critically ill
HEENT: ETT in place. Normocephalic, Atraumatic and Moist Mucous Membranes
Respiratory: Bilateral coarse crackles; Negative Wheezes or Rhonchi. Chest ecchymosis
Cardiac: Irregular rate and rhythm, tachycardic and S1/S2, systolic murmur
GI: Soft, Nontender and Nondistended
Neuro: Sedated on the vent
A/P:
Cardiac arrest likely due to hypoxia from acute pulmonary edema and severe aortic stenosis:
Patient went into PEA and ROSC
Remains on the ventilator
Remains on multiple pressors
Salon Customer Experience Specialist on board
Cardiology on board
Discussed with at bedside
Cardiogenic and septic shock:
On Levophed, dobutamine, and Ad-Synephrine
Despite 3 pressors blood pressure remains relatively low
On antibiotics
Severe critical aortic stenosis:
There were initial plans for TAVR at [facility] on 10/03 but poor response to diuresis and uptrending LFTs and KHUSHBOO and tachycardia while on treatment
Does not appear to be a candidate for valve replacement at the moment
Persistent atrial fibrillation:
On amiodarone drip
On Eliquis outpatient
Cardiac monitoring
Severe mitral regurgitation:
Status post mitral valve repair in the past with ring annuloplasty and new cords to posterior leaflet on 2018.
Acute HFrEF:
EF 15 to 20% on latest echo cardiac
On inotropic
On mechanical ventilation currently
KHUSHBOO:
Initial diuresis related and cardiorenal but now worsened by ATN due to cardiac arrest
Elevated LFTs:
Ischemic and passive venous congestion
Elevated troponin:
Due to cardiac arrest
Hyponatremia
Hypokalemia
History of prostate cancer
CODE STATUS:
Full code--> changed to DNR
Total Critical Care Time__45___ minutes. I was immediately available to the patient and staff. I personally examined, reviewed labs, diagnostic images/reports, interpretations, treatment plans, discussed patient care with other providers and
family or caregivers (if patient is unable to make decisions), entered orders as appropriate and documented the medical record.
Anticipated Discharge: 24 - 48 hours
Subjective/Interval History
-
Date of Service: October 02, 2024
Patient remains critically ill. Remains on the ventilator.
Objective Data
-
Labs:
Laboratory Results
10/01/24 10/02/24 10/02/24
23:41 02:45 04:08
WBC 6.3 7.1
Hgb 14.3 15.1
Hct 40.9 44.0
Plt Count 163 155
PT 25.5 H
INR 2.31
APTT 31.3
HCO3 26.6 21.7
Sodium 131 L 135
Potassium 3.4 L 3.7
Chloride 91 L 89 L
Carbon Dioxide 27 26
BUN 79 H 79 H
Creatinine 1.6 H 1.7 H
Glucose 157 H 170 H
Calcium 8.8 8.6
Total Bilirubin 3.2 H 3.4 H
AST 197 H 245 H
ALT 239 H 253 H
Alkaline Phosphatase 65 73
10/02/24 10/02/24 10/02/24
06:00 07:41 08:24
WBC 15.2 H
Hgb 14.2
Hct 41.3
Plt Count 174
PT 30.0 H
INR
APTT
HCO3 26.1
Sodium Pending
Potassium Pending
Chloride Pending
Carbon Dioxide Pending
BUN Pending
Creatinine Pending
Glucose Pending
Calcium Pending
Total Bilirubin
AST
ALT
Alkaline Phosphatase
10/02/24 10/02/24 10/02/24
08:24 08:24 08:24
WBC
Hgb
Hct
Plt Count
PT 29.5 H
INR 2.81 2.76
APTT 35.4 H
HCO3
Sodium Pending 132 L
Potassium Pending
Chloride
Carbon Dioxide
BUN
Creatinine
Glucose
Calcium
Total Bilirubin
AST
ALT
Alkaline Phosphatase
10/02/24 10/02/24 10/02/24
08:24 08:24 08:24
WBC
Hgb
Hct
Plt Count
PT
INR
APTT
HCO3
Sodium
Potassium 3.0 L
Chloride Pending 89 L
Carbon Dioxide Pending 25
BUN Pending
Creatinine
Glucose
Calcium
Total Bilirubin
AST
ALT
Alkaline Phosphatase
10/02/24 10/02/24 10/02/24
08:24 08:24 08:24
WBC
Hgb
Hct
Plt Count
PT
INR
APTT
HCO3
Sodium
Potassium
Chloride
Carbon Dioxide
BUN 80 H
Creatinine Pending 1.8 H
Glucose Pending 278 H
Calcium Pending
Total Bilirubin
AST
ALT
Alkaline Phosphatase
10/02/24
08:24
WBC
Hgb
Hct
Plt Count
PT
INR
APTT
HCO3
Sodium
Potassium
Chloride
Carbon Dioxide
BUN
Creatinine
Glucose
Calcium 8.7
Total Bilirubin 3.9 H
AST 279 H
ALT 213 H
Alkaline Phosphatase 61
Vital Signs:
Vital Signs
Temp Pulse Resp BP Pulse Ox
96.7 F L 109 16 93/65 93
10/02/24 08:41 10/02/24 07:40 10/02/24 07:40 10/02/24 07:40 10/02/24 08:30
I&O
10/01/24 10/02/24 10/03/24
06:59 06:59 06:59
Intake Total 505.9 / 630.5 249.2 / 249.2
Output Total 1075 / 1125 100 / 100
Balance -569.1 / -494.5 149.2 / 149.2
[2024-10-02] MEDS: KCL 100 IV (09:21)
[2024-10-02] MEDS: LOW STRENGTH ASPIRIN 81 MG TUBE (09:29)
[2024-10-02] MEDS: MAGNESIUM OXIDE 500 MG PO (09:29)
[2024-10-02] MEDS: KCL ELIXIR 40 MEQ TUBE (09:29)
[2024-10-02 09:30] LABS: Lactic Acid 6.1 mmol/L (0.7-2.0)
--- NOTE | 2024-10-02 09:30 | CARDSERVDEF ---
Echocardiogram with Definity completed after protocol screening completed. Allergies verified.
Patent IV site: _L AC____
IV site flushed with 0.9% NaCl pre and post administration.
Diluted bolus method utilized to enhance visualization of ventricular olivas.
Total volume given: __6__ mL
Patient tolerated all procedures well without complications.
[2024-10-02 09:43] LABS: Blood Urea Nitrogen 79 mg/dl (9-20); Calcium 8.8 mg/dl (8.4-10.2); Carbon Dioxide 23 mmol/L (22-30); Chloride 89 mmol/L (98-107); Estimated Creatinine Clearance 31 ml/min; Glucose 273 mg/dl (70-99); Magnesium 2.8 mg/dl (1.6-2.3); Phosphorus 6.4 mg/dl (2.5-4.5); Sodium 132 mmol/L (135-145); eGFR 39.26
--- NOTE | 2024-10-02 10:11 | W.PN.CARDCBS ---
Addendum entered and electronically signed by Elayne Preciado MD 10/02/24 17:00:
I saw and examined the patient.
The Floor Layer Apprentice's note was reviewed and I agree with the note.
Comment: Briefly Mr. Artem Hawkins is a 84-year-old gentleman who was transferred from [facility] where he presented with worsening shortness of breath and dyspnea on exertion in the setting of acute on chronic heart failure with preserved
ejection fraction. His past medical history is also notable for hypertension, hyperlipidemia, persistent atrial fibrillation on chronic Eliquis, prior prostate cancer, prior hernia repairs, severe mitral regurgitation status post mitral valve
repair with ring annuloplasty in 2018, rectal bleeding thought to be hemorrhoidal in nature, severe aortic stenosis status post workup completed for TAVR on the schedule for a transcatheter aortic valve replacement via transfemoral approach on
October 03, 2024. Hospital course the going the hospital was complicated by worsening renal function, worsening liver function test concerning for possible cardiogenic shock and patient was transferred for further management at [facility].
Patient was seen multiple times over the course of 12 to 14 hours since presenting to the [facility], initially evaluated at the time of transfer with Dr. Harshil Moser.
On presentation patient's blood pressure was 100/78 with heart rates in atrial fibrillation in low 100s. He did not complain of any significant cardiac complaints but instead told us that since his presentation to [facility] he was overall
feeling better. He told us that he does not have any chest discomfort or any other pain and his breathing is comfortable. On exam he was warm to touch, mentating well, significantly elevated JVD, decreased breath sounds at bilateral bases with
Rales, regular rate, 3 out of 6 systolic ejection murmur loudest at the right upper sternal border.
Decision was made to continue medical therapy including IV diuresis overnight, checking full set of labs and planning for right heart catheterization with leave in [place] to help further optimize medications prior to scheduled TAVR on ,
October 03, 2024.
Overnight I had a lengthy discussing with Dr. Ranjit Sutherland when patient unfortunately suffered a PEA cardiac arrest at around 2:30 in the morning requiring CPR, emergent intubation followed by brief episode of V-fib status post shock x 1 and
subsequently needing multiple pressors and inotropic support. This morning at bedside he was on 12.5 of dobutamine, 30 of Levophed, 0.04 of vasopressin, fentanyl drip, Bumex drip and Dr. Harshil Moser and I urgently placed a triple-lumen central
line as well as an arterial line via right common femoral vein and artery under ultrasound guidance at bedside. Arterial line blood pressures despite all the support was 85/53 with maps in the 50-60s.
Decision was made to optimize pressor support and attempts to bring patient down to the lab for right heart cath and leave in [place] and consideration for BAV. In this setting given he had previously had mild to moderate aortic regurgitation decision
was made to repeat the echocardiogram as last echocardiogram was from August,. Repeat echocardiogram here showed LVEF had significantly decreased now up to 15-20% with concern for significant aortic regurgitation precluding safe balloon
aortic valvuloplasty. Multidisciplinary discussions were had within the TAVR team in regards to consideration for a emergent TAVR given patient remained critically ill requiring multiple pressors and multiorgan failure. Unfortunately patient
continued to deteriorate from a clinical standpoint despite multiple pressor and inotropic support struggling to maintain a blood pressure above 70 systolic. At this time discussions were had with the family by Dr. Miller from CT surgery and decision
was made to pursue comfort measures only.
Elayne Preciado MD, [facility], [facility]
Total critical care time: 92mins
Original Note:
Today's Communication / Plan
-
Remains critically ill on multiple pressors
Intubated
Multidisciplinary discussions ongoing regarding TAVR candidacy
Not BAV candidate given AI/AR
Prognosis guarded
Impression / Plan
-
Primary Rn Building: Dr[facility] Lazcano [facility]
Impression:
Presented to [facility] with SOB
Acute on chronic HFpEF
Severe , was planned for TAVR 10/03/24
Transferred to 10/01/24 in preparation for TAVR
Cardiogenic shock
s/p PEA arrest, brief Vfib with shock x1 10/02/24
Intubated at time of code 10/02/24
Hypotension requiring multiple pressors
Cardiomyopathy, EF 15-20% by echo 10/02/24
Transaminitis
KHUSHBOO
Rectal bleeding, suspected hemorrhoidal
Severe MR status post mitral valve repair with ring annuloplasty and new cords to posterior leaflet 10/2017
Hypertension
Hyperlipidemia
Chronic right bundle branch block
Persistent atrial fibrillation
History of prostate cancer status post prostatectomy in 2006
Right lower lobe pulmonary nodule
History of hernia repairs
OA s/p B/L TKR
ECHO 08/21/24: EF 50%, moderate concentric LVH, severely dilated left atrium, mildly dilated right atrium, severe , mild to moderate AR, peak/mean gradients 122/68 mmHg, KEYANNA 0.66 cm�, mild MR status post number 32 mm annuloplasty ring with mean
gradient of 5 mmHg, moderate TR, was in afib/flutter
Cath 08/28/2024: Nonobstructive coronary artery disease�diagonal stenosis 50 to 60%, circumflex stenosis 50%, 30 to 40% ostial RCA disease, remainder of vessels widely patent
ECHO 10/02/24: EF 15 to 20%, mild concentric LVH, severe global hypokinesis, stage II diastolic dysfunction, severely dilated right atrium, critical with peak/mean gradients 86/50 mmHg, KEYANNA 0.43 cm, moderate to severe AR with pressure half-time
of 391 ms, moderate TR, PAP 49 mmHg
Plan:
-Patient was admitted to [facility] last week for shortness of breath and found to be in heart failure. He had poor response to diuresis by report and had uptrending LFTs and KHUSHBOO as well as tachycardia. He was transferred to yesterday
as he was planned for TAVR , 10/03/2024.
-Appears he was in cardiogenic shock
-Patient noted to be sarah around 3AM then coded with PEA arrest with ROSC. then had recurrent PEA with brief vfib requiring shock x1 with ROSC. requiring multiple pressors�levo at 30, dobutamine at 7.5, vasopressin at 0.04.
-Patient remains critically ill.
-intubated, sedated
-Urgent echo completed this morning with EF 15 to 20%, critical and moderate to severe AR. Prior echo from 08/21 with EF 50%. Based on degree of AI/AR, not felt to be candidate for BAV
-Multidisciplinary discussions ongoing regarding TAVR candidacy. If attempted, would be high risk
-Central line and A-line placed this morning by automotive painter
-On IV Bumex gtt at 1
-Remains on IV amiodarone at 1 due to brief V-fib at time of code. has persistent afib
-eliquis has been on hold in prep for TAVR and as had rectal bleeding at [facility] felt to be secondary to hemorrhoids
-currently limited DNR code status
-prognosis guarded
Progress Note - Rn Building
Subjective
Date of Service: October 02, 2024
intubated, sedated
Objective
Labs:
10/02/24 08:24
10/02/24 08:24
Labs
Hgb 14.2 g/dL (13.0-18.0) 10/02/24 08:24
Hct 41.3 % (39.0-52.0) 10/02/24 08:24
Plt Count 174 10^3/uL (130-400) 10/02/24 08:24
PT 29.5 Sec (11.4-14.6) H 10/02/24 08:24
PT 30.0 Sec (11.4-14.6) H 10/02/24 08:24
INR 2.76 10/02/24 08:24
INR 2.81 10/02/24 08:24
APTT 35.4 Sec (23.4-35.0) H 10/02/24 08:24
Sodium 132 mmol/L (135-145) L 10/02/24 08:24
Sodium 132 mmol/L (135-145) L 10/02/24 08:24
Potassium 3.0 mmol/L (3.5-5.1) L 10/02/24 08:24
Potassium 3.0 mmol/L (3.5-5.1) L 10/02/24 08:24
BUN 79 mg/dl (9-20) H 10/02/24 08:24
BUN 80 mg/dl (9-20) H 10/02/24 08:24
Creatinine 1.7 mg/dL (0.7-1.3) H 10/02/24 08:24
Creatinine 1.8 mg/dL (0.7-1.3) H 10/02/24 08:24
Glucose 273 mg/dl (70-99) H 10/02/24 08:24
Glucose 278 mg/dl (70-99) H 10/02/24 08:24
Troponins
10/02/24 10/02/24
02:45 08:24
Troponin I 0.380 H* 6.260 H* D
Vital Signs and I&O:
Vital Signs
Temp Pulse Resp BP Pulse Ox
96.7 F L 82 17 91/68 92
10/02/24 08:41 10/02/24 09:45 10/02/24 09:45 10/02/24 09:40 10/02/24 09:45
Vital Signs
Temp Pulse Resp BP Pulse Ox
96.7 F L 82 17 91/68 92
10/02/24 08:41 10/02/24 09:45 10/02/24 09:45 10/02/24 09:40 10/02/24 09:45
Intake & Output
09/30/24 10/01/24 10/02/24 10/03/24
07:59 07:59 07:59 07:59
Intake Total 633.0 / 760.1 251.7 / 251.7
Output Total 1125 / 1175 75 / 75
Balance -492.0 / -414.9 176.7 / 176.7
Physical Exam
Physical Exam
GEN: No distress, intubated. ill appearing
HEENT: supple, mmm
LUNGS: Crackles B/L, no wheezes
CV: Irreg, S1/S2, 2/6 syst LSB
ABD: soft, BS+, NT/ND
EXT: No cyanosis, clubbing.
NEURO: sedated
SKIN: Warm, pink, dry. No rash. chest ecchymoses
[2024-10-02] MEDS: NEO-SYNEPHRINE 250 IV (11:09)
--- NOTE | 2024-10-02 11:29 | PTCARENOTE ---
pt continues to have low blood pressures- cardiology ok with systolic 80s and map 60. pressures continued to decrease Dr. Tomas aware and at bedside- linda ordered and started. Dr. Tomas at bedside with family- pt made limited dnr. pt awakens on
50mcg of fentanyl gtt, follows commands, nods yes and no appropriately. denies pain.
[2024-10-02] MEDS: NOVOLOG FLEXPEN-MODERATE RESISTANCE 5 UNITS SC (12:08)
[2024-10-02] MEDS: NOVOLIN N vial 0.05 UNITS SC (12:09)
[2024-10-02] MEDS: MAXIPIME 1000 MG IV (12:09)
[2024-10-02 12:18] LABS: Glucose - Point of Care 281 mg/dl (70-99)
--- NOTE | 2024-10-02 13:02 | CM ---
CM following re: discharge planning.
Discussed in rounds, reviewed pt's chart, met with pt. pt's spouse Hilda and daughter in law at bedside.
Pt is an 84 year old male, admitted with primary dx of In-hospital cardiac arrest (PEA). per rounds meeting, pt remains intubated, remains critically ill on multiple pressors, prognosis guarded, goals of care discussed with family, possible
transition terrance comfort care.
Both pt's spouse and daughter in law are aware of pt's critical health condition. Emotional support offered and provided.
Pt livers with spouse 2SH, 2 steps to enter, has a son.
D/C plan: possible comfort care.
CM is available for emotional support.
--- NOTE | 2024-10-02 13:20 | PTCARENOTE ---
pt sr with bbb. Dr. Tomas remains aware of pts blood pressures- titrate dobutamine per order see flowsheet. no further orders at this time.
[2024-10-02] MEDS: NEO-SYNEPHRINE 1% 260 MG IV (13:58)
--- NOTE | 2024-10-02 14:00 | PTCARENOTE ---
Dr. Laureano remains aware of bp- no further orders at this time.
--- NOTE | 2024-10-02 15:06 | W.PN.UPDATE ---
Update Note
Progress Note Update
Multiple conversations held between the [id number] + spouse at bedside. Given that the patient is now on multiple vasopressors including Levophed at 30mcg/min, dobutamine at 10mcg/kg/min, and now Ad-Synephrine at 200mcg/min with patient's BP
still dangerously low with MAP in the 50s, it is recommended to transition to comfort care. Chances of meaningful recovery are exceedingly low. Family understands this and they now wish to transition to comfort care. Additional family members are
here in the waiting room and they wish to say their goodbyes first for closure prior to us terminally extubating him. Comfort care orders to be placed and we will extubate the patient and stop life support once the patient's is ready. Bedside
RN made aware and so was the primary hospitalist, Dr. River.
[2024-10-02] MEDS: NSS (PRESERVATIVE FREE) 0.25 ML IV (15:29)
[2024-10-02] MEDS: ATIVAN 0.5 MG IV (16:00)
[2024-10-02] MEDS: DILAUDID 1 MG IV (16:00)
--- NOTE | 2024-10-02 16:12 | PTCARENOTE ---
Dr. Tomas at bedside to talk to family-pt made dnr comfort care. diluadid and ativan given as per order. gtts off. pt extubated. family at bedside.
--- NOTE | 2024-10-02 16:24 | W.PN.UPDATE ---
Update Note
Progress Note Update
I had a long discussion with Mr. Hawkins's family and spouse. He is admitted as a transfer from [facility], currently in cardiogenic shock and likely and aspiration event with subsequent right side pulmonary injury. He was on multiple vasoactive and
inotropic agents and still maintaining a blood pressure of only 70. I reviewed his ECHO which was markedly different from his previous. We discussed options, including emergent TAVR vs comfort measures. Ultimately, the family made the decision to
pursue comfort measures. I notified his RN and ICU physician on his code status change.
--- NOTE | 2024-10-02 16:30 | W.PN.DEATH ---
Pronouncement of
-
Called to see patient to pronounce.
No spontaneous heart tones or respirations noted.
Patient not responsive to verbal stimuli.
Patient is pronounced .
Time of : 16:25
Date of : 10/02/24
Cause of : Acute respiratory failure with hypoxia due to acute cardiogenic pulmonary edema in setting of critical aortic stenosis
Family Notified: Yes
--- NOTE | 2024-10-02 16:43 | W.DCSUMMARY ---
Discharge Summary
Discharge Data
Date of Admission: 10/01/24
Date of Discharge: 10/02/24
-
Pending Results: No
Hospital Course
Patient 84 years old male with multiple comorbidities including severe aortic stenosis, MVR, hypertension, hyperlipidemia, prostate cancer, presented to [facility] initially for evaluation of TAVR and transferred to [facility].
While in [facility] he received diuresis but had worsening KHUSHBOO and transaminitis. When he arrived to the hospital he underwent cardiac arrest presumably related to hypoxia due to acute pulmonary edema with underlying severe aortic stenosis. He underwent
cardiogenic shock as well as septic shock. He was given pressors antibiotics and multiple treatment modalities. Cardiology, account manager relief, cardiothoracic surgery were all consulted. Despite best treatment, patient continued to deteriorate and
discussions with family took place and they decided to withdraw care given poor prognosis. Patient ultimately was pronounced today 10/02/2024 at 16:25. Let his soul rest in peace.
Discharge duration: 35 minutes
Discharge Plan
-
Patient Disposition:
Date/Time
Date/Time: 10/02/24 16:25
Discharge Date and Time
Discharge Date/Time: 10/02/24 16:25
Print Language: CROATIAN
--- NOTE | 2024-10-02 17:42 | PTCARENOTE ---
pt at 1625, pronounced by Dr. Tomas. wedding band given to by . post mortem care completed.
== END 2024-10-02 16:25 | disposition expired | DRG 871 ==
LOC: ICU 17:37
PROVIDERS: Nurse Practitioner Family; Physician Assistant; Physician Assistant Medical; Registered Nurse; ADMITTING PHYSICIAN Hospitalist; ATTENDING PHYSICIAN Hospitalist; CONSULT PHYSICIAN Internal Medicine Critical Care Medicine; CONSULT PHYSICIAN Nuclear Medicine Nuclear Cardiology; FAMILY PHYSICIAN Family Medicine
PROC: 0BH17EZ Insertion of Endotracheal Airway into Trachea, Via Natural or Artificial Opening (ICD-10-PCS; 2024-10-02)
PROC: 5A1935Z Respiratory Ventilation, Less than 24 Consecutive Hours (ICD-10-PCS; 2024-10-02)
DX: A41.9 Sepsis, unspecified organism (principal); I50.43 Acute on chronic combined systolic (congestive) and diastolic (congestive) heart failure; R65.21 Severe sepsis with septic shock; J96.01 Acute respiratory failure with hypoxia; J69.0 Pneumonitis due to inhalation of food and vomit; N17.9 Acute kidney failure, unspecified; I13.0 Hypertensive heart and chronic kidney disease with heart failure and stage 1 through stage 4 chronic kidney disease, or unspecified chronic kidney disease; I48.19 Other persistent atrial fibrillation; E87.1 Hypo-osmolality and hyponatremia; I08.3 Combined rheumatic disorders of mitral, aortic and tricuspid valves; K76.1 Chronic passive congestion of liver; N18.32 Chronic kidney disease, stage 3b; K59.00 Constipation, unspecified; R57.0 Cardiogenic shock; I46.9 Cardiac arrest, cause unspecified; E87.6 Hypokalemia; Z11.52 Encounter for screening for COVID-19; I45.10 Unspecified right bundle-branch block; I25.10 Atherosclerotic heart disease of native coronary artery without angina pectoris; K64.9 Unspecified hemorrhoids
CPT/HCPCS: 36600; 71045; 74018; 80048; 80053; 82330; 82805; 82962; 83605; 83735; 84100; 84484; 85025; 85027; 85610; 85730; 86850; 86900; 86901; 87070; 87502; 87811; 93005; 93306; 94002; Q9957